=== PATIENT | female | born 1990 | race Caucasian/White ===

== ENCOUNTER 2016-06-16 11:34 | Inpatient (IN) | payer OTHER ==
[~2016-06-16] VITALS: Ht 165.1 cm; Wt 91.0 kg
[~2016-06-16 11:34] MED LIST: ACET50TA PO; ANUS2.5C2 EXT; DOCU10ELUD PO; DOXE150C7 PO; HYDR-3716 PO; IBUP80TA PO; LAMO100T PO; LATU1TAB PO; MINI2CAP PO; No home medications; PRENTAB74 PO; PROZ20CA11 PO; ROBA500T PO; ZOLO100T PO; ZOLP10TA2 PO; desyrel PO; sumatriptan PO
[2016-06-16 12:01] LABS: MEAN CORPUSCULAR HEMOGLOBIN 26.5 pg (27.0-33.0); MEAN CORPUSCULAR HGB CONC 33.1 g/dl (32.0-36.5); MEAN CORPUSCULAR VOLUME 79.9 fl (80.0-96.0); RED CELL DISTRIBUTION WIDTH 14.1 % (11.5-14.5); WHITE BLOOD COUNT 9.4 K/mm3 (4.0-10.0)
[2016-06-16 12:09] LABS: CONTROL LINE HCG INT CTR LINE PRESENT
[2016-06-16 12:10] LABS: AMPHETAMINES LEVEL URINE NEGATIVE (NEGATIVE); BENZODIAZEPINES URINE NEGATIVE (NEGATIVE); COCAINE METABOLITE URINE NEGATIVE (NEGATIVE); CONTROL LINE INT CTR LINE PRESENT; METHADONE URINE NEGATIVE (NEGATIVE); OPIATES URINE NEGATIVE (NEGATIVE); TRICYCLIC ANTIDEPRESS URINE POSITIVE (NEGATIVE)
[2016-06-16 12:27] LABS: ALBUMIN 4.1 GM/DL (3.2-5.2); ALBUMIN/GLOBULIN RATIO 1.17 (1.00-1.93); ALKALINE PHOSPHATASE 132 U/L (45-117); ALT/SGPT 36 U/L (12-78); ANION GAP 14 MEQ/L (8-16); AST/SGOT 22 U/L (15-37); BILIRUBIN,DIRECT 0.1 MG/DL (0.0-0.2); BILIRUBIN,TOTAL 0.4 MG/DL (0.2-1.0); BLOOD UREA NITROGEN 8 MG/DL (7-18); CALCIUM LEVEL 9.1 MG/DL (8.5-10.1); CARBON DIOXIDE LEVEL 19 MEQ/L (21-32); CHLORIDE LEVEL 108 MEQ/L (98-107); CREATININE FOR GFR 1.11 MG/DL (0.55-1.02); GLOMERULAR FILTRATION RATE > 60.0 (>60); GLUCOSE, FASTING 118 MG/DL (70-105); SODIUM LEVEL 141 MEQ/L (136-145); TOTAL PROTEIN 7.6 GM/DL (6.4-8.2)
[2016-06-16] MEDS ORDERED: ACETAMINOPHEN 325 MG TAB As Ordered ONE (17:35)
[2016-06-16] MEDS ORDERED: MOM 30ML SUSPENSION UDC PO PRN (19:00)
[2016-06-16] MEDS ORDERED: traZODone 50 MG TAB PO PRN (19:00)
[2016-06-16] MEDS ORDERED: MAALOX 30 ML SUSP *UDC PO PRN (19:00)
[2016-06-16] MEDS ORDERED: LATU40TA PO (20:36)
[2016-06-16] MEDS ORDERED: DOXE150C7 PO (20:36)
[2016-06-16] MEDS ORDERED: LURASIDONE 20 MG TAB (LATUDA) PO SCH (21:00)
[2016-06-16 21:09] VITALS: BP 136/65
--- NOTE | 2016-06-16 21:16 | EDDOCDS ---
Physician Documentation [facility] Name: Jeanie Gasca Age: 25 yrs Sex: Female : 1990 Arrival Date: 06/16/2016 Time: 11:34 Bed OBSERVATION Private MD: Disposition: 06/16/16 21:12 Hospitalization ordered by Ric Rosario for Inpatient Admission. Preliminary diagnosis is Suicidal ideations. - Bed requested for Admit. - Status is Inpatient Admission. slm - Condition is Stable. - Problem is an acute exacerbation. - Symptoms have improved. Historical: - Allergies: IODINEIODINE CONTAINING; - Home Meds: 1. doxepin 150 mg Oral cap 2 cap nightly (Last dose: 06/15/2016 20:00) 2. lamotrigine 100 mg Oral TbDL 2 tabs once daily (Last dose: 06/16/2016 08:00) 3. Latuda 60 mg oral tab 1 tab once daily (Last dose: 06/16/2016 08:00) 4. prazosin 2 mg Oral cap 2 caps nightly (Last dose: 06/15/2016 20:00) 5. Zoloft 100 mg oral tab once daily (Last dose: 06/16/2016 08:00) - PMHx: Anxiety; Bipolar disorder; Depression; PTSD; - PSHx: none; - Social history: Smoking status: Patient uses tobacco products, heavy tobacco smoker. No barriers to communication noted, Speaks appropriately for age. - Family history: Not pertinent. - : The pt / caregiver states he / she is not on anticoagulants. Home medication list is obtained from the patient. - Exposure Risk Screening:: None identified. 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 5 in. (165.10 cm) (R); Pain 0/10; 16:02 BP 133 / 81; Pulse 89; Resp 18; Temp 98.3(O); Pulse Ox 98% on R/A; Pain 0/10; ml6 20:25 BP 138 / 80; Pulse 102; Resp 18; Temp 98.8(T); Pulse Ox 96% on R/A; Pain 0/10; slm 12:01 Body Mass Index 33.95 (92.53 kg, 165.10 cm) ml6 MDM: 11:50 Consult PFS/PSA/Bundles Hanger ordered. ml 11:50 Consult PFS/PSA/Bundles Hanger: Patient's case requires discussion with on-call ml Psychiatrist ordered. 11:50 PSA/PFS to call Nursing Construction Job Titles, to enter patient data on [place] Safe Act if patient ml involuntarily admitted or transferred for SI or HI ordered. 11:50 Confirm accurate psychiatric medication list and times of last dosage ordered. ml 11:50 Detain Pt Until Medically/PFS Cleared ordered. ml 11:51 Acetaminophen Level Ordered. EDMS 11:51 Basic Metabolic Profile Ordered. EDMS 11:51 Complete Blood Count Ordered. EDMS 11:51 Drug Eval Toxicology ED Only Ordered. EDMS 11:51 Ethyl Alcohol (ethanol) Ordered. EDMS 11:51 HCG,Serum Qualitative Ordered. EDMS 11:51 Liver Profile Ordered. EDMS 11:51 Salicylate Level Ordered. EDMS 11:51 Thyroid Stimulating Hormone Ordered. EDMS 11:57 Financial registration complete. dm19 11:58 [facility] Payment Agreement was scanned into Bantr and attached to record. dm19 12:20 REGULAR DIET PLASTIC DEVI+DIET ordered. EDMS 13:32 Acetaminophen Level Reviewed. ml 13:32 Basic Metabolic Profile Reviewed. ml 13:32 Complete Blood Count Reviewed. ml 13:32 Drug Eval Toxicology ED Only Reviewed. ml 13:32 Liver Profile Reviewed. ml 13:32 Salicylate Level Reviewed. ml 13:32 Ethyl Alcohol (ethanol) Reviewed. ml 13:32 HCG,Serum Qualitative Reviewed. ml 13:32 Thyroid Stimulating Hormone Reviewed. ml 14:07 Consult PFS/PSA/Bundles Hanger complete. rb 15:45 REGULAR DIET PLASTIC DEVI+DIET ordered. EDMS 17:34 Acetaminophen Tablet 975 mg PO once ordered. ml 17:38 Spine. Lumbosacral, Complete Ordered. EDMS 19:01 Admit to IMHU: ordered. EDMS 19:02 REGULAR DIET ordered. EDMS 19:05 [facility] Legal paperwork was scanned into Bantr and attached to record. rb Administered Medications: 17:36 Drug: Acetaminophen 975 mg [acetaminophen 325 mg tablet (3 tabs)] Route: PO; ml6 Signatures: Dispatcher [employer] EDJoseph James MD MD ml Gilda Marx, PSA PSA Naeem Garcia, DO DO mm11 Naeem Santoyo, RN RN ml6 Laury Moreira,ADDY TAFOYAN Rosa He dm19 The chart was reviewed and I authenticate all verbal orders and agree with the evaluation and treatment provided.Attachments: 11:58 [facility] Payment Agreement dm19 MTDD
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
[2016-06-16] MEDS: CYCLOBENZAPRINE 10 MG TAB PO PRN (22:54)
[2016-06-16] MEDS: PERCOCET 5MG/325MG TAB PO PRN (22:55)
[2016-06-16] MEDS ORDERED: QUEtiapine FUMARATE 50 MG TAB PO PRN (23:00)
[2016-06-16] MEDS: lamoTRIgine 100MG TAB PO SCH (23:28)
[2016-06-16] MEDS: LURASIDONE HCL 40 MG TAB (LATUDA) PO SCH (23:28)
[2016-06-16] MEDS: PRAZOSIN 1 MG CAP PO SCH (23:29)
[2016-06-16] MEDS: SERTRALINE 100 MG TAB PO SCH (23:29)
[2016-06-16] MEDS: DOXEPIN 25 MG CAP PO SCH (23:53)
[2016-06-16] MEDS: IBUPROFEN 800 MG TAB PO PRN (23:55)
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
[2016-06-17] MEDS: NICOTINE 21MG/24HR 1 EA TRANSDERMAL TD SCH (08:29)
[2016-06-17] MEDS: IBUPROFEN 800 MG TAB PO PRN ×2 (09:32→19:52)
[2016-06-17] MEDS: CYCLOBENZAPRINE 10 MG TAB PO PRN (09:33)
[2016-06-17] MEDS: PERCOCET 5MG/325MG TAB PO PRN (12:09)
[2016-06-17] MEDS: ACETAMINOPHEN TAB 650MG DOSE (2X325MG) PO PRN ×2 (15:48→21:09)
[2016-06-17 18:43] VITALS: BP 131/73
[2016-06-17] MEDS: SERTRALINE 100 MG TAB PO SCH (19:52)
[2016-06-17] MEDS: DOXEPIN 25 MG CAP PO SCH (19:52)
[2016-06-17] MEDS: lamoTRIgine 100MG TAB PO SCH (19:52)
[2016-06-17] MEDS: LURASIDONE HCL 40 MG TAB (LATUDA) PO SCH (19:52)
[2016-06-17] MEDS: PRAZOSIN 1 MG CAP PO SCH (19:53)
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
[2016-06-18] MEDS: NICOTINE 21MG/24HR 1 EA TRANSDERMAL TD SCH (08:14)
[2016-06-18] MEDS ORDERED: [UNRECOGNIZED DRUG - OTHER] IM ONE (09:00)
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
[2016-06-18 18:32] VITALS: BP 133/84
[2016-06-18] MEDS: ACETAMINOPHEN TAB 650MG DOSE (2X325MG) PO PRN (19:03)
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
[2016-06-18] MEDS: lamoTRIgine 100MG TAB PO SCH (21:29)
[2016-06-18] MEDS: LURASIDONE HCL 40 MG TAB (LATUDA) PO SCH (21:29)
[2016-06-18] MEDS: SERTRALINE 100 MG TAB PO SCH (21:29)
[2016-06-18] MEDS: PRAZOSIN 1 MG CAP PO SCH (21:29)
[2016-06-18] MEDS: DOXEPIN 25 MG CAP PO SCH (21:30)
[2016-06-19] MEDS: NICOTINE 21MG/24HR 1 EA TRANSDERMAL TD SCH (09:27)
--- NOTE | 2016-06-19 11:46 | EDDOCDS ---
Physician Documentation [facility] Name: Jeanie Gasca Age: 25 yrs Sex: Female : 1990 Arrival Date: 06/16/2016 Time: 11:34 Bed OBSERVATION Private MD: Disposition: 06/16/16 21:12 Hospitalization ordered by Ric Rosario for Inpatient Admission. Preliminary diagnosis is Suicidal ideations. - Bed requested for Admit. - Status is Inpatient Admission. slm - Condition is Stable. - Problem is an acute exacerbation. - Symptoms have improved. Historical: - Allergies: IODINEIODINE CONTAINING; - Home Meds: 1. doxepin 150 mg Oral cap 2 cap nightly (Last dose: 06/15/2016 20:00) 2. lamotrigine 100 mg Oral TbDL 2 tabs once daily (Last dose: 06/16/2016 08:00) 3. Latuda 60 mg oral tab 1 tab once daily (Last dose: 06/16/2016 08:00) 4. prazosin 2 mg Oral cap 2 caps nightly (Last dose: 06/15/2016 20:00) 5. Zoloft 100 mg oral tab once daily (Last dose: 06/16/2016 08:00) - PMHx: Anxiety; Bipolar disorder; Depression; PTSD; - PSHx: none; - Social history: Smoking status: Patient uses tobacco products, heavy tobacco smoker. No barriers to communication noted, Speaks appropriately for age. - Family history: Not pertinent. - : The pt / caregiver states he / she is not on anticoagulants. Home medication list is obtained from the patient. - Exposure Risk Screening:: None identified. PANTRY WORKER: 06/16 12:01 LMP 05/27/2016 ml6 Vital Signs: 12:01 BP 144 / 89; Pulse 102; Resp 18; Temp 98.7(O); Pulse Ox 98% on R/A; Weight 92.53 kg / ml6 203.99 lbs (R); Height 5 ft. 5 in. (165.10 cm) (R); Pain 0/10; 16:02 BP 133 / 81; Pulse 89; Resp 18; Temp 98.3(O); Pulse Ox 98% on R/A; Pain 0/10; ml6 20:25 BP 138 / 80; Pulse 102; Resp 18; Temp 98.8(T); Pulse Ox 96% on R/A; Pain 0/10; slm 12:01 Body Mass Index 33.95 (92.53 kg, 165.10 cm) ml6 MDM: 11:50 Consult PFS/PSA/Pulley Worker ordered. ml 11:50 Consult PFS/PSA/Pulley Worker: Patient's case requires discussion with on-call ml Psychiatrist ordered. 11:50 PSA/PFS to call Nursing Flight Purser, to enter patient data on [place] Safe Act if patient ml involuntarily admitted or transferred for SI or HI ordered. 11:50 Confirm accurate psychiatric medication list and times of last dosage ordered. ml 11:50 Detain Pt Until Medically/PFS Cleared ordered. ml 11:51 Acetaminophen Level Ordered. EDMS 11:51 Basic Metabolic Profile Ordered. EDMS 11:51 Complete Blood Count Ordered. EDMS 11:51 Drug Eval Toxicology ED Only Ordered. EDMS 11:51 Ethyl Alcohol (ethanol) Ordered. EDMS 11:51 HCG,Serum Qualitative Ordered. EDMS 11:51 Liver Profile Ordered. EDMS 11:51 Salicylate Level Ordered. EDMS 11:51 Thyroid Stimulating Hormone Ordered. EDMS 11:57 Financial registration complete. [id number] 11:58 [facility] Payment Agreement was scanned into [employer] and attached to record. [id number] 12:20 REGULAR DIET PLASTIC DEVI+DIET ordered. EDMS 13:32 Acetaminophen Level Reviewed. ml 13:32 Basic Metabolic Profile Reviewed. ml 13:32 Complete Blood Count Reviewed. ml 13:32 Drug Eval Toxicology ED Only Reviewed. ml 13:32 Liver Profile Reviewed. ml 13:32 Salicylate Level Reviewed. ml 13:32 Ethyl Alcohol (ethanol) Reviewed. ml 13:32 HCG,Serum Qualitative Reviewed. ml 13:32 Thyroid Stimulating Hormone Reviewed. ml 14:07 Consult PFS/PSA/Pulley Worker complete. rb 15:45 REGULAR DIET PLASTIC DEVI+DIET ordered. EDMS 17:34 Acetaminophen Tablet 975 mg PO once ordered. ml 17:38 Spine. Lumbosacral, Complete Ordered. EDMS 19:01 Admit to [facility]: ordered. EDMS 19:02 REGULAR DIET ordered. EDMS 19:05 [facility] Legal paperwork was scanned into [employer] and attached to record. rb 06/17 08:00 T-Sheet-- Draft Copy was scanned into [employer] and attached to record. seh Administered Medications: 06/16 17:36 Drug: Acetaminophen 975 mg [acetaminophen 325 mg tablet (3 tabs)] Route: PO; ml6 Signatures: Dispatcher [employer] Joseph Gonzalez MD MD ml Gilda Marx, NICHOLAS PSA Naeem Garcia, DO [id number] Naeem Santoyo, RN RN ml6 Laury Moreira LPN LPN slm Hoffert, Sarah seh McLear, Diane [id number] The chart was reviewed and I authenticate all verbal orders and agree with the evaluation and treatment provided.Attachments: 11:58 [facility] Payment Agreement [email or web address] 06/17 08:00 T-Sheet-- Draft Copy [facility] [place] Chart Complete MTDD
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
--- NOTE | 2016-06-19 11:46 | EDDOCDS ---
Physician Documentation [facility] [facility] Name: Jeanie Gasca Age: 25 yrs Sex: Female : 1990 Arrival Date: 06/16/2016 Time: 11:34 Bed OBSERVATION Private MD: Disposition: 06/16/16 21:12 Hospitalization ordered by Ric Rosario for Inpatient Admission. Preliminary diagnosis is Suicidal ideations. - Bed requested for Admit. - Status is Inpatient Admission. slm - Condition is Stable. - Problem is an acute exacerbation. - Symptoms have improved. Historical: - Allergies: IODINEIODINE CONTAINING; - Home Meds: 1. doxepin 150 mg Oral cap 2 cap nightly (Last dose: 06/15/2016 20:00) 2. lamotrigine 100 mg Oral TbDL 2 tabs once daily (Last dose: 06/16/2016 08:00) 3. Latuda 60 mg oral tab 1 tab once daily (Last dose: 06/16/2016 08:00) 4. prazosin 2 mg Oral cap 2 caps nightly (Last dose: 06/15/2016 20:00) 5. Zoloft 100 mg oral tab once daily (Last dose: 06/16/2016 08:00) - PMHx: Anxiety; Bipolar disorder; Depression; PTSD; - PSHx: none; - Social history: Smoking status: Patient uses tobacco products, heavy tobacco smoker. No barriers to communication noted, Speaks appropriately for age. - Family history: Not pertinent. - : The pt / caregiver states he / she is not on anticoagulants. Home medication list is obtained from the patient. - Exposure Risk Screening:: None identified. SAW OFFBEARER: 06/16 12:01 LMP 05/27/2016 ml6 Vital Signs: 12:01 BP 144 / 89; Pulse 102; Resp 18; Temp 98.7(O); Pulse Ox 98% on R/A; Weight 92.53 kg / ml6 203.99 lbs (R); Height 5 ft. 5 in. (165.10 cm) (R); Pain 0/10; 16:02 BP 133 / 81; Pulse 89; Resp 18; Temp 98.3(O); Pulse Ox 98% on R/A; Pain 0/10; ml6 20:25 BP 138 / 80; Pulse 102; Resp 18; Temp 98.8(T); Pulse Ox 96% on R/A; Pain 0/10; slm 12:01 Body Mass Index 33.95 (92.53 kg, 165.10 cm) ml6 MDM: 11:50 Consult PFS/PSA/Currency Examiner ordered. ml 11:50 Consult PFS/PSA/Currency Examiner: Patient's case requires discussion with on-call ml Psychiatrist ordered. 11:50 PSA/PFS to call Nursing Steward/Stewardess Night, to enter patient data on [place] Safe Act if patient ml involuntarily admitted or transferred for SI or HI ordered. 11:50 Confirm accurate psychiatric medication list and times of last dosage ordered. ml 11:50 Detain Pt Until Medically/PFS Cleared ordered. ml 11:51 Acetaminophen Level Ordered. EDMS 11:51 Basic Metabolic Profile Ordered. EDMS 11:51 Complete Blood Count Ordered. EDMS 11:51 Drug Eval Toxicology ED Only Ordered. EDMS 11:51 Ethyl Alcohol (ethanol) Ordered. EDMS 11:51 HCG,Serum Qualitative Ordered. EDMS 11:51 Liver Profile Ordered. EDMS 11:51 Salicylate Level Ordered. EDMS 11:51 Thyroid Stimulating Hormone Ordered. EDMS 11:57 Financial registration complete. dm19 11:58 [facility] [place] Agreement was scanned into [employer] and attached to record. dm19 12:20 REGULAR DIET PLASTIC DEVI+DIET ordered. EDMS 13:32 Acetaminophen Level Reviewed. ml 13:32 Basic Metabolic Profile Reviewed. ml 13:32 Complete Blood Count Reviewed. ml 13:32 Drug Eval Toxicology ED Only Reviewed. ml 13:32 Liver Profile Reviewed. ml 13:32 Salicylate Level Reviewed. ml 13:32 Ethyl Alcohol (ethanol) Reviewed. ml 13:32 HCG,Serum Qualitative Reviewed. ml 13:32 Thyroid Stimulating Hormone Reviewed. ml 14:07 Consult PFS/PSA/Currency Examiner complete. rb 15:45 REGULAR DIET PLASTIC DEVI+DIET ordered. EDMS 17:34 Acetaminophen Tablet 975 mg PO once ordered. ml 17:38 Spine. Lumbosacral, Complete Ordered. EDMS 19:01 Admit to [facility]: ordered. EDMS 19:02 REGULAR DIET ordered. EDMS 19:05 [facility] Legal paperwork was scanned into [employer] and attached to record. rb 06/17 08:00 T-Sheet-- Draft Copy was scanned into [employer] and attached to record. seh Administered Medications: 06/16 17:36 Drug: Acetaminophen 975 mg [acetaminophen 325 mg tablet (3 tabs)] Route: PO; ml6 Signatures: Dispatcher [employer] Joseph Gonzalez MD MD ml Gilda Marx, NICHOLAS PSA Naeem Garcia, DO [id number] Naeem Santoyo, RN RN ml6 Laury Moreira LPN LPN slm Hoffert, Sarah seh McLear, Diane [id number] The chart was reviewed and I authenticate all verbal orders and agree with the evaluation and treatment provided.Attachments: 11:58 [facility] Payment Agreement [email or web address] 06/17 08:00 T-Sheet-- Draft Copy [facility] Chart Complete MTDD
[2016-06-19 18:00] VITALS: BP 136/73
[2016-06-19] MEDS ORDERED: HALOPERIDOL 5 MG TAB PO PRN (19:30)
[2016-06-19] MEDS: PRAZOSIN 1 MG CAP PO SCH (21:19)
[2016-06-19] MEDS: LURASIDONE HCL 40 MG TAB (LATUDA) PO SCH (21:19)
[2016-06-19] MEDS: SERTRALINE 100 MG TAB PO SCH (21:19)
[2016-06-19] MEDS: IBUPROFEN 800 MG TAB PO PRN (21:20)
[2016-06-19] MEDS: lamoTRIgine 100MG TAB PO SCH (21:20)
[2016-06-19] MEDS: DOXEPIN 25 MG CAP PO SCH (21:21)
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
[2016-06-20 06:51] VITALS: BP 119/72
[2016-06-20] MEDS: NICOTINE 21MG/24HR 1 EA TRANSDERMAL TD SCH (09:19)
[2016-06-20 18:00] VITALS: BP 122/69
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
[2016-06-20] MEDS: CYCLOBENZAPRINE 10 MG TAB PO PRN (20:22)
[2016-06-20] MEDS: SERTRALINE 100 MG TAB PO SCH (20:22)
[2016-06-20] MEDS: DOXEPIN 25 MG CAP PO SCH (20:22)
[2016-06-20] MEDS: PRAZOSIN 1 MG CAP PO SCH (20:23)
[2016-06-20] MEDS: ACETAMINOPHEN TAB 650MG DOSE (2X325MG) PO PRN (20:24)
[2016-06-20] MEDS: QUEtiapine FUMERATE XR 50 MG TABER PO SCH (21:26)
[2016-06-21 06:22] VITALS: BP 137/77
[2016-06-21] MEDS: NICOTINE 21MG/24HR 1 EA TRANSDERMAL TD SCH (09:00)
[2016-06-21] MEDS: CYCLOBENZAPRINE 10 MG TAB PO PRN ×2 (13:15→21:56)
[2016-06-21 18:00] VITALS: BP 140/69
[2016-06-21] MEDS: DOXEPIN 25 MG CAP PO SCH (21:52)
[2016-06-21 21:55] VITALS: BP 143/82
[2016-06-21] MEDS: PRAZOSIN 1 MG CAP PO SCH (21:55)
[2016-06-21] MEDS: SERTRALINE 100 MG TAB PO SCH (21:56)
[2016-06-21] MEDS: QUEtiapine FUMERATE XR 50 MG TABER PO SCH (21:56)
[2016-06-22 06:16] VITALS: BP 167/93
[2016-06-22] MEDS: NICOTINE 21MG/24HR 1 EA TRANSDERMAL TD SCH (09:00)
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
[2016-06-22] MEDS ORDERED: NICO21PAT TD (10:18)
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
[2016-06-22] MEDS ORDERED: SERT-138 PO (10:59)
[2016-06-22] MEDS ORDERED: SERO50TA3 PO (10:59)
[2016-06-22] MEDS ORDERED: DOXE150C7 PO (10:59)
[2016-06-22] MEDS ORDERED: PRAZ2CAP PO (11:06)
[2016-06-22] MEDS ORDERED: HALO2TA PO (11:06)
== END 2016-06-22 11:45 | disposition home or self-care (01) | DRG 753 ==
LOC: M ED 11:34 → M PSY 20:57
PROVIDERS: ADMIT Psychiatry & Neurology Psychiatry; ATTEND Psychiatry & Neurology Psychiatry
DX: F39 Unspecified mood [affective] disorder (principal); F17.200 Nicotine dependence, unspecified, uncomplicated; Z88.8 Allergy status to other drugs, medicaments and biological substances; Z79.899 Other long term (current) drug therapy; Z91.018 Allergy to other foods; Z91.013 Allergy to seafood; G47.9 Sleep disorder, unspecified

== ENCOUNTER 2017-01-09 22:33 | Emergency (ER) | payer OTHER ==
[~2017-01-09] VITALS: Ht 165.1 cm; Wt 77.9 kg
[~2017-01-09 22:33] MED LIST changes: +HALO2TA PO; +LAMO200T; +LATU1TAB; +LATU40TA PO; +NICO21PAT TD; +PRAZ2CAP PO; +SERO50TA3 PO; +SERT-138 PO
[2017-01-09 22:34] VITALS: BP 142/84
== END 2017-01-09 23:51 | disposition left against medical advice (07) ==
LOC: M ED 22:33
DX: R11.2 Nausea with vomiting, unspecified (principal); Z53.29 Procedure and treatment not carried out because of patient's decision for other reasons

== ENCOUNTER 2017-05-02 17:16 | Emergency (ER) | payer OTHER ==
[~2017-05-02] VITALS: Ht 165.1 cm; Wt 73.1 kg
[2017-05-02 18:08] LABS: METHADONE URINE NEGATIVE (NEGATIVE)
--- NOTE | 2017-05-02 18:15 | REP ---
Clinical: Trauma. Fall. Technique: AP, lateral, bilateral oblique and sunrise views right knee. Findings: Mild prepatellar swelling is suggested. The osseous structures and joint spaces are intact and normal. There is no evidence for acute fracture or dislocation. No joint effusion is appreciated. No subcutaneous emphysema or radiodense foreign body. Impression: Mild prepatellar swelling. No acute fracture or dislocation. If the patient remains symptomatic consider repeat evaluation in 3-5 days. Signed by James Guerrero MD 05/02/2017 06:07 P
[2017-05-02] MEDS ORDERED: IBUP-1022 PO (18:29)
[2017-05-02 18:39] VITALS: BP 131/83
== END 2017-05-02 18:43 | disposition home or self-care (01) ==
LOC: M ED 17:16
DX: S80.01XA Contusion of right knee, initial encounter (principal); W01.198A Fall on same level from slipping, tripping and stumbling with subsequent striking against other object, initial encounter; Y92.511 Restaurant or cafe as the place of occurrence of the external cause; Y93.89 Activity, other specified; Y99.0 Civilian activity done for income or pay; K58.9 Irritable bowel syndrome, unspecified; F41.9 Anxiety disorder, unspecified; F31.9 Bipolar disorder, unspecified; F43.10 Post-traumatic stress disorder, unspecified; F17.210 Nicotine dependence, cigarettes, uncomplicated; Z88.8 Allergy status to other drugs, medicaments and biological substances; Z91.018 Allergy to other foods; Z91.013 Allergy to seafood

== ENCOUNTER 2017-06-07 16:54 | Emergency (ER) | payer MEDICAID, OTHER ==
[2017-06-07 18:48] LABS: HCG, SERUM QUANTITATIVE 1466 MIU/ML
== END 2017-06-07 19:43 | disposition home or self-care (01) ==
LOC: M ED 16:54
DX: O9A.311 Physical abuse complicating pregnancy, first trimester (principal); T14.8XXA Other injury of unspecified body region, initial encounter; Y07.03 Male partner, perpetrator of maltreatment and neglect; Y92.89 Other specified places as the place of occurrence of the external cause; O99.341 Other mental disorders complicating pregnancy, first trimester; F31.9 Bipolar disorder, unspecified; F43.10 Post-traumatic stress disorder, unspecified; O99.611 Diseases of the digestive system complicating pregnancy, first trimester; K58.9 Irritable bowel syndrome, unspecified; O99.331 Smoking (tobacco) complicating pregnancy, first trimester; F17.210 Nicotine dependence, cigarettes, uncomplicated; O99.321 Drug use complicating pregnancy, first trimester; F12.90 Cannabis use, unspecified, uncomplicated; Z88.8 Allergy status to other drugs, medicaments and biological substances; Z91.013 Allergy to seafood; Z91.018 Allergy to other foods; Z3A.00 Weeks of gestation of pregnancy not specified
CPT/HCPCS: 84702

== ENCOUNTER → 2017-06-18 | Outpatient (REF) | payer MEDICAID ==
[2017-06-18 19:58] LABS: HEMATOCRIT 40.7 % (36.0-47.0); HEMOGLOBIN 13.3 g/dl (12.0-16.0); MEAN CORPUSCULAR HGB CONC 32.7 g/dl (32.0-36.5); MEAN CORPUSCULAR VOLUME 82.6 fl (80.0-96.0); PLATELET COUNT, AUTOMATED 199 10^3/uL (150-450); RED BLOOD COUNT 4.93 10^6/uL (4.00-5.40); RED CELL DISTRIBUTION WIDTH 13.4 % (11.5-14.5); WHITE BLOOD COUNT 8.1 10^3/uL (4.0-10.0)
[2017-06-19 10:50] LABS: RUBELLA IgG QUALITATIVE IMMUNE (IMMUNE)
[2017-06-19 10:58] LABS: HEPATITIS B SURFACE ANTIGEN NEGATIVE (NEGATIVE)
[2017-06-19 11:19] LABS: HIV 1&2 SCREEN CENTAUR NEGATIVE (NEGATIVE)
[2017-06-19 11:19] LABS: HEPATITIS C VIRUS ABY INDEX 0.2 INDEX (<0.8)
== END ==
LOC: M LAB REF 17:20
DX: O36.80X0 Pregnancy with inconclusive fetal viability, not applicable or unspecified (principal)

== ENCOUNTER 2017-06-29 19:56 | Emergency (ER) | payer MEDICAID ==
[2017-06-29 21:01] LABS: BASO % 0.4 % (0.0-1.0); EOS # 0.1 10^3/uL (0.0-0.50); EOS % 0.8 % (0.0-3.0); HEMATOCRIT 40.4 % (36.0-47.0); HEMOGLOBIN 13.6 g/dl (12.0-16.0); IMMATURE GRANULOCYTE % 0.2 % (0-0); LYMPH # 2.6 10^3/uL (1.5-6.5); LYMPH % 30.4 % (24.0-44.0); MEAN CORPUSCULAR HGB CONC 33.7 g/dl (32.0-36.5); MEAN CORPUSCULAR VOLUME 80.3 fl (80.0-96.0); MONO # 0.8 10^3/uL (0.0-0.8); MONO % 8.9 % (0.0-5.0); NEUTROPHILS % 59.3 % (36.0-66.0); PLATELET COUNT, AUTOMATED 207 10^3/uL (150-450); RED BLOOD COUNT 5.03 10^6/uL (4.00-5.40); RED CELL DISTRIBUTION WIDTH 13.3 % (11.5-14.5); WHITE BLOOD COUNT 8.4 10^3/uL (4.0-10.0)
[2017-06-29] MEDS: NS 1,000 ML IV (21:02)
[2017-06-29] MEDS: METOCLOPRAMIDE INJ 10MG/2ML VIAL (J2765) IV (21:02)
[2017-06-29 21:33] LABS: ALBUMIN/GLOBULIN RATIO 1.14 (1.00-1.93); ALKALINE PHOSPHATASE 71 U/L (45-117); ALT/SGPT 18 U/L (12-78); AMYLASE 62 U/L (25-115); ANION GAP 9 MEQ/L (8-16); AST/SGOT 10 U/L (7-37); BILIRUBIN,DIRECT 0.1 MG/DL (0.0-0.2); BILIRUBIN,TOTAL 0.7 MG/DL (0.2-1.0); BLOOD UREA NITROGEN 7 MG/DL (7-18); CALCIUM LEVEL 9.1 MG/DL (8.5-10.1); CARBON DIOXIDE LEVEL 26 MEQ/L (21-32); CHLORIDE LEVEL 104 MEQ/L (98-107); CREATININE FOR GFR 0.56 MG/DL (0.55-1.02); GLOMERULAR FILTRATION RATE > 60.0 (>60); GLUCOSE, FASTING 88 MG/DL (70-105); LIPASE 110 U/L (73-393); POTASSIUM SERUM 3.6 MEQ/L (3.5-5.1); SODIUM LEVEL 139 MEQ/L (136-145); TOTAL PROTEIN 7.5 GM/DL (6.4-8.2)
[2017-06-29 22:25] LABS: APPEARANCE, URINE HAZY (CLEAR); BACTERIA, URINE AUTO 1+ (NEGATIVE); BILIRUBIN, URINE AUTO NEGATIVE (NEGATIVE); BLOOD, URINE BLOOD NEGATIVE (NEGATIVE); COLOR, URINE YELLOW (YELLOW); GLUCOSE, URINE (UA) AUTO NEGATIVE (NEGATIVE); KETONE, URINE AUTO 1+ mg/dL (NEGATIVE); LEUKOCYTE ESTERASE, URINE AUTO NEGATIVE (NEGATIVE); MUCUS, URINE SMALL (NEGATIVE); NITRITE, URINE AUTO NEGATIVE (NEGATIVE); PROTEIN, URINE AUTO NEGATIVE (NEGATIVE); RBC, URINE AUTO 1 /HPF (0-3); SQUAMOUS EPITHELIAL CELL UR AU 10 /HPF (0-6); WBC, URINE AUTO 2 /HPF (0-3)
== END 2017-06-29 22:51 | disposition home or self-care (01) ==
LOC: M ED 19:56
DX: O21.0 Mild hyperemesis gravidarum (principal); O99.341 Other mental disorders complicating pregnancy, first trimester; F32.9 Major depressive disorder, single episode, unspecified; O99.611 Diseases of the digestive system complicating pregnancy, first trimester; K58.9 Irritable bowel syndrome, unspecified; Z87.891 Personal history of nicotine dependence; Z3A.08 8 weeks gestation of pregnancy; Z91.013 Allergy to seafood; Z91.018 Allergy to other foods; Z88.8 Allergy status to other drugs, medicaments and biological substances
CPT/HCPCS: J2765

== ENCOUNTER 2017-08-22 00:48 | Emergency (ER) | payer MEDICAID | END 2017-08-22 03:40 | disposition left against medical advice (07) | LOC: M ED 00:48 | DX: Z53.29 Procedure and treatment not carried out because of patient's decision for other reasons (principal) ==

== ENCOUNTER 2017-09-06 19:12 | Emergency (ER) | payer OTHER, MEDICAID ==
[2017-09-06] MEDS: ACETAMINOPHEN 325 MG TAB PO (20:51)
[2017-09-06 22:00] LABS: AMORPHOUS SEDIMENT RFX SMALL (NEGATIVE); KETONE, URINE AUTO RFX TRACE mg/dL (NEGATIVE); LEUKOCYTE ESTERASE UR AUTO RFX NEGATIVE (NEGATIVE); MUCUS, URINE RFX SMALL (NEGATIVE); NITRITE, URINE AUTO RFX NEGATIVE (NEGATIVE); RBC, URINE AUTO RFX 0 /HPF (0-3); SPECIFIC GRAVITY UR AUTO RFX 1.019 (1.002-1.035); SQUAM EPITHELIAL CELL UR AURFX 1 /HPF (0-6); WBC, URINE AUTO RFX 2 /HPF (0-3)
[2017-09-06 22:49] LABS: CHLAMYDIA DNA AMPLIFICATION NEGATIVE (NEGATIVE); GC DNA AMPLIFICATION NEGATIVE (NEGATIVE)
== END 2017-09-06 22:43 | disposition home or self-care (01) ==
LOC: M ED 19:12
DX: O26.892 Other specified pregnancy related conditions, second trimester (principal); R10.2 Pelvic and perineal pain; N89.8 Other specified noninflammatory disorders of vagina; O99.89 Other specified diseases and conditions complicating pregnancy, childbirth and the puerperium; R56.9 Unspecified convulsions; Z3A.17 17 weeks gestation of pregnancy; Z88.8 Allergy status to other drugs, medicaments and biological substances; Z91.013 Allergy to seafood; Z91.018 Allergy to other foods; O99.332 Smoking (tobacco) complicating pregnancy, second trimester; F17.210 Nicotine dependence, cigarettes, uncomplicated
CPT/HCPCS: 76811

== ENCOUNTER → 2017-12-23 | Outpatient (CLI) | payer OTHER ==
[2017-12-23 13:26] LABS: HEMOGLOBIN 10.4 g/dl (12.0-15.5); MEAN CORPUSCULAR HEMOGLOBIN 26.5 pg (27.0-33.0); MEAN CORPUSCULAR HGB CONC 32.5 g/dl (32.0-36.5); MEAN CORPUSCULAR VOLUME 81.4 fl (80.0-96.0); PLATELET COUNT, AUTOMATED 143 10^3/uL (150-450); RED BLOOD COUNT 3.93 10^6/uL (4.00-5.40); RED CELL DISTRIBUTION WIDTH 13.3 % (11.5-14.5); WHITE BLOOD COUNT 8.9 10^3/uL (4.0-10.0)
[2017-12-23 13:40] LABS: GLUCOSE CHALLENGE TEST 1 HOUR 116 MG/DL (LESS THAN 140)
== END ==
LOC: M WUC 09:56
DX: Z36.89 Encounter for other specified antenatal screening (principal); Z3A.00 Weeks of gestation of pregnancy not specified
CPT/HCPCS: 82950

== ENCOUNTER → 2018-01-14 | Outpatient (REF) | payer OTHER | LOC: M LAB REF 01-15 12:50 | DX: Z34.83 Encounter for supervision of other normal pregnancy, third trimester (principal); Z3A.00 Weeks of gestation of pregnancy not specified | CPT/HCPCS: 87186 ==

== ENCOUNTER 2018-01-30 18:41 | Outpatient (CLI) | payer OTHER ==
[2018-01-30 19:58] LABS: HEMATOCRIT 34.5 % (36.0-47.0); HEMOGLOBIN 11.4 g/dl (12.0-15.5); MEAN CORPUSCULAR HEMOGLOBIN 26.3 pg (27.0-33.0); MEAN CORPUSCULAR VOLUME 79.7 fl (80.0-96.0); PLATELET COUNT, AUTOMATED 186 10^3/uL (150-450); RED BLOOD COUNT 4.33 10^6/uL (4.00-5.40); RED CELL DISTRIBUTION WIDTH 13.5 % (11.5-14.5); WHITE BLOOD COUNT 9.4 10^3/uL (4.0-10.0)
== END 2018-01-30 22:10 | disposition home or self-care (01) ==
LOC: M LDO 18:41
DX: Z04.3 Encounter for examination and observation following other accident (principal); W10.8XXA Fall (on) (from) other stairs and steps, initial encounter; Y92.89 Other specified places as the place of occurrence of the external cause; Y93.89 Activity, other specified; Y99.8 Other external cause status; O47.1 False labor at or after 37 completed weeks of gestation; Z3A.38 38 weeks gestation of pregnancy
CPT/HCPCS: 76815

== ENCOUNTER 2018-02-03 10:57 | Inpatient (IN) | payer OTHER ==
[2018-02-03] MEDS ORDERED: LR 1,000 ML IV (11:27)
[2018-02-03 11:46] LABS: HEMATOCRIT 36.8 % (36.0-47.0); HEMOGLOBIN 12.3 g/dl (12.0-15.5); MEAN CORPUSCULAR HEMOGLOBIN 26.7 pg (27.0-33.0); MEAN CORPUSCULAR HGB CONC 33.4 g/dl (32.0-36.5); MEAN CORPUSCULAR VOLUME 79.8 fl (80.0-96.0); PLATELET COUNT, AUTOMATED 192 10^3/uL (150-450); RED BLOOD COUNT 4.61 10^6/uL (4.00-5.40); RED CELL DISTRIBUTION WIDTH 13.6 % (11.5-14.5); WHITE BLOOD COUNT 9.1 10^3/uL (4.0-10.0)
[2018-02-03] MEDS: PENICILLIN G POTASSIUM IV 5 MU in D5W MINI-BAG PLUS 100 ML IV (11:47)
[2018-02-03] MEDS: LACTATED RINGER'S 1000 ML IV (11:47)
[2018-02-03] MEDS: OXYTOCIN DRIP 30 UNITS in APPROPRIATE DILUENT 1 EA IV ×2 (12:25→18:46)
[2018-02-03 12:36] LABS: AMPHETAMINES URINE REFLEX NEGATIVE (NEGATIVE); BARBITURATES URINE REFLEX NEGATIVE (NEGATIVE); BENZODIAZEPINES URINE REFLEX NEGATIVE (NEGATIVE); COCAINE METABOLITE URINE REFLE NEGATIVE (NEGATIVE); METHADONE URINE REFLEX NEGATIVE (NEGATIVE); OPIATES URINE REFLEX NEGATIVE (NEGATIVE); PHENCYCLIDINE URINE REFLEX NEGATIVE (NEGATIVE)
[2018-02-03 12:39] LABS: CANNABINOIDS URINE REFLEX PENDING CONFIRMATION (NEGATIVE)
[2018-02-03] MEDS: LR 1,000 ML IV (12:54)
[2018-02-03] MEDS: PENICILLIN G POTASSIUM IV 2.5 MU in APPROPRIATE DILUENT 1 EA IV (15:38)
[2018-02-03 18:18] LABS: CORD GAS ABE V -1.8; CORD GAS HCO3 V 19.3 MEQ/L; CORD GAS O2 SAT V 87.3 %; CORD GAS PCO2 V 25.6 mmHg; CORD GAS PH V 7.495 UNITS; CORD GAS PO2 V 34.8 mmHg; CORD GAS SBC V 22.7 MEQ/L; CORD GAS TCO2 V 20.1 MEQ/L
[2018-02-03 18:21] LABS: CORD GAS ABE A -4.9; CORD GAS HCO3 A 16.7 MEQ/L; CORD GAS PCO2 A 24.4 mmHg; CORD GAS PH A 7.453 UNITS; CORD GAS SBC A 20.1 MEQ/L; CORD GAS TCO2 A 17.4 MEQ/L
[2018-02-03] MEDS ORDERED: RHOGAM 300 MCG (1500 IU) INJ (J2790) IM (19:00)
[2018-02-03] MEDS ORDERED: DOCUSATE SODIUM 100 MG CAP PO (19:00)
[2018-02-03] MEDS ORDERED: METHYLERGONOVINE MALEATE 0.2 MG TAB PO (19:00)
[2018-02-03] MEDS ORDERED: ANUSOL HC CREAM 30GM TOP (19:00)
[2018-02-03] MEDS ORDERED: MEASLES,MUMPS,RUBELLA VACCINE INJ (MMR-II) (90707) SC (19:00)
[2018-02-03] MEDS: ACETAMINOPHEN 500 MG TAB PO (19:11)
[2018-02-03] MEDS: IBUPROFEN 800 MG TAB PO (19:11)
[2018-02-04] MEDS: ACETAMINOPHEN 500 MG TAB PO (05:41)
[2018-02-04] MEDS: IBUPROFEN 800 MG TAB PO ×2 (05:41→19:46)
[2018-02-04] MEDS ORDERED: PRENATAL VITAMINS CHEWABLE TABLET PO (09:00)
[2018-02-04] MEDS: DIBUCAINE 1% OINTMENT 30GM TOP (09:36)
[2018-02-05] MEDS: ACETAMINOPHEN 500 MG TAB PO (05:22)
[2018-02-06 10:50] LABS: Cannabinoid Positive (.); GC Carboxy THC 54 ng/mL (Cutoff=10)
== END 2018-02-05 13:10 | disposition home or self-care (01) | DRG 560 ==
LOC: M LDI 10:57 → M OBS 19:25
PROVIDERS: Advanced Practice Midwife
PROC: 10E0XZZ Delivery of Products of Conception, External Approach (ICD-10-PCS; principal; 2018-02-03)
PROC: 3E033VJ Introduction of Other Hormone into Peripheral Vein, Percutaneous Approach (ICD-10-PCS; 2018-02-03)
DX: O69.89X0 Labor and delivery complicated by other cord complications, not applicable or unspecified (principal); O99.820 Streptococcus B carrier state complicating pregnancy; Z37.0 Single live birth; Z91.018 Allergy to other foods; Z91.013 Allergy to seafood; Z91.040 Latex allergy status; F17.200 Nicotine dependence, unspecified, uncomplicated; O99.334 Smoking (tobacco) complicating childbirth; F31.9 Bipolar disorder, unspecified; O99.344 Other mental disorders complicating childbirth; F41.9 Anxiety disorder, unspecified; Z3A.39 39 weeks gestation of pregnancy

== ENCOUNTER → 2018-08-15 | Outpatient (CLI) | payer OTHER ==
[~2018-08-15] MED LIST changes: +DOXE150C PO; -DOXE150C7 PO; +HALO1TAB19 PO; -HALO2TA PO; +IBUP-1022 PO; +IBUP-1114 PO; -LAMO200T; +LAMO200T2; +MAPA500T2 PO; +PRENTAB55 PO; +REGL10TA6 PO; +SERO50TA27 PO; -SERO50TA3 PO
--- NOTE | 2018-08-15 17:03 | REP ---
First trimester obstetric sonography: History: Supervision of . Findings: Scanning through the gravid uterus and transvaginal scanning are performed. A single living intrauterine gestation is seen. The embryonic pole has a crown-rump length measured at 10 mm. This corresponds to a gestational age estimate of 7 weeks 0 days. heart rate is recorded at 153 beats per minute. A small subchorionic hemorrhage is identified. This measures 0.9 x 0.9 x 0.7 cm. No extrauterine abnormalities observed. Impression: Viable single intrauterine gestation at 7 weeks 0 days by crown-rump length. SAEID by sonography April 03, 2019. Electronically Signed by Blas Nieves MD 08/15/2018 06:57 P
== END ==
LOC: M SMT 13:25
PROVIDERS: ATTEND Nurse Practitioner Family
DX: Z36.89 Encounter for other specified antenatal screening (principal); Z3A.01 Less than 8 weeks gestation of pregnancy

== ENCOUNTER 2019-01-11 13:53 | Emergency (ER) | payer OTHER ==
[~2019-01-11] VITALS: Ht 165.1 cm; Wt 84.5 kg
[~2019-01-11 13:53] MED LIST changes: -ACET50TA PO; -DOCU10ELUD PO; +DOCU5LIQ PO; -LAMO100T PO; +LAMO100T3 PO; -LAMO200T2; +LAMO200T3; +MAPA500T17 PO; -SERO50TA27 PO; +SERO50TA4 PO
[2019-01-11 13:54] VITALS: BP 130/73
[2019-01-11] MEDS ORDERED: LATU80TA (14:01)
[2019-01-11] MEDS ORDERED: ACETAMINOPHEN 325 MG TAB PO ONE (15:00)
== END 2019-01-11 15:07 | disposition home or self-care (01) ==
LOC: M ED 13:53
DX: F31.9 Bipolar disorder, unspecified (principal); R56.9 Unspecified convulsions; K58.9 Irritable bowel syndrome, unspecified; Z79.899 Other long term (current) drug therapy; Z88.8 Allergy status to other drugs, medicaments and biological substances; Z91.013 Allergy to seafood; Z91.018 Allergy to other foods; Z91.040 Latex allergy status

== ENCOUNTER → 2019-06-22 | Outpatient (REF) | payer OTHER ==
[~2019-06-22] MED LIST changes: +LATU80TA
== END ==
LOC: M SFHCLERA 12:02
PROVIDERS: ATTEND Nurse Practitioner Family
DX: R30.0 Dysuria (principal); N89.8 Other specified noninflammatory disorders of vagina

== ENCOUNTER → 2019-11-23 | Outpatient (CLI) | payer OTHER ==
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
== END ==
LOC: M WUC 13:24
PROVIDERS: ATTEND Physician Assistant
DX: S93.401A Sprain of unspecified ligament of right ankle, initial encounter (principal); S93.601A Unspecified sprain of right foot, initial encounter; M79.89 Other specified soft tissue disorders; X58.XXXA Exposure to other specified factors, initial encounter; Y92.9 Unspecified place or not applicable

== ENCOUNTER → 2023-05-22 | Outpatient (REF) ==
[~2023-05-22] MED LIST changes: -LATU40TA PO; +LATU40TA2 PO; -LATU80TA; +LATU80TA2
== END ==
LOC: M EMP 09:37
PROVIDERS: ATTEND Family Medicine
DX: Z11.52 Encounter for screening for COVID-19 (principal)

== ENCOUNTER → 2023-06-20 | Outpatient (CLI) | payer OTHER | LOC: M OUTALCOH 08:22 | PROVIDERS: ATTEND Psychiatry & Neurology Psychiatry | DX: F10.10 Alcohol abuse, uncomplicated (principal) ==